=== PATIENT | female | born 1960 | race Hispanic/Latino ===

== ENCOUNTER 2019-06-22 15:30 | Outpatient (CLI) | payer OTHER ==
--- NOTE | 2019-06-22 15:46 | RAD ---
XR Knee Rt 2 View: 06/22/2019 12:00 AM CLINICAL INDICATION: Disability evaluation COMPARISON: None. FINDINGS: Fracture:No fracture. Arthropathy:Moderate arthropathy. Incidental findings:None of significance. IMPRESSION: 1. No acute osseous abnormality.
== END 2019-06-22 15:31 | disposition home or self-care (01) ==
LOC: BICRAD 15:30
PROVIDERS: ATTEND Internal Medicine
DX: Z02.71 Encounter for disability determination (principal)